=== PATIENT | male | born 1985 | race Caucasian/White ===

== ENCOUNTER 2019-01-25 12:35 | Outpatient (CLI) | payer OTHER ==
--- NOTE | 2019-01-25 14:54 | XRAY Report ---
Reason: R SIDE PAIN Procedure Date: 01/25/2019 Accession Number: [id number] / [id number] Procedure: XR - Lumbar Spine 2 View CPT Code: FULL RESULT: EXAM: LUMBOSACRAL SPINE RADIOGRAPHY EXAM DATE: 01/25/2019 12:51 PM. CLINICAL HISTORY: Right side pain. COMPARISONS: None. TECHNIQUE: 2 views. FINDINGS: Alignment: Normal. No spondylolisthesis or scoliosis. Bones: Six [id number] lumbar vertebral bodies are present vestigial ribs at T12. No fractures or bone lesions. Disks: Disk space heights are preserved with minimal marginal osteophytosis at L3. Facets: Mild to moderate facet arthropathy is present predominantly at L5. Sacroiliac Joints: Unremarkable. Soft Tissues: Normal. The visualized bowel gas pattern is normal. IMPRESSION: Mild degenerative changes as described. RADIA
== END 2019-01-25 12:36 | disposition home or self-care (01) ==
LOC: DI 12:35
PROVIDERS: ATTEND Specialist
DX: M47.27 Other spondylosis with radiculopathy, lumbosacral region (principal); M54.41 Lumbago with sciatica, right side
CPT/HCPCS: 72100

== ENCOUNTER 2022-10-29 16:56 | Outpatient (CLI) | payer OTHER ==
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
== END 2022-10-29 16:57 | disposition home or self-care (01) ==
LOC: DI 16:56
PROVIDERS: ATTEND Registered Nurse
DX: R20.2 Paresthesia of skin (principal); M62.830 Muscle spasm of back; M50.122 Cervical disc disorder at C5-C6 level with radiculopathy

== ENCOUNTER 2022-12-06 06:58 | Outpatient (CLI) | payer OTHER ==
--- NOTE | 2022-12-06 15:56 | MRI Report ---
PROCEDURE: CERVICAL SPINE WO INDICATIONS: PARAESTHESIA TECHNIQUE: Noncontrast sagittal T1 spin echo and T2 fast spin echo, sagittal STIR, foraminal oblique sagittal T2 fast spin echo, and axial gradient echo or T2 fast spin echo through the cervical spine. COMPARISON: Cervical spine x-ray 10/29/2022 FINDINGS: Image quality: Linear high signal is noted traversing the left foramina at C2-3 as well as punctate s imilar hyperintensities noted along the lateral recess at this level. No visualized foreign bodies id entified on x-ray. Alignment and Curvature: There is straightening of normal cervical curvature. Bone Marrow: Marrow demonstrates normal overall signal. Spinal Cord: Visualized spinal cord has normal size and signal. No cerebellar tonsillar herniation. Paraspinous Soft Tissues: No paravertebral masses. Prevertebral soft tissues are normal in thicknes s. Discs: Minimal desiccation is present C5-6. C2-C3: No disc bulge, spinal stenosis or foraminal narrowing. C3-C4: No disc bulge, spinal stenosis or foraminal narrowing. C4-C5: Minimal disc bulge without spinal stenosis. Minimal bilateral foraminal narrowing. C5-C6: Mild posterior left asymmetric disc bulge with effacement of the anterior thecal sac. Minimal to mild bilateral foraminal narrowing. C6-C7: No disc bulge, spinal stenosis or foraminal narrowing. C7-T1: No disc bulge, spinal stenosis or foraminal narrowing. IMPRESSION: Posterior mild left asymmetric disc bulge at C5-6. Scattered minimal to mild foraminal narrowing most notable at C5-6. Linear high signal traversing the left foramina with some adjacent punctate hyperintensities. This is suspected to be related to artifact or potentially surgical hardware which is not visualized on x-ra y. Clinical correlation is recommended. Reviewed by: Bryanna Naqvi MD on 12/06/2022 3:54 PM PDT Approved by: Bryanna Naqvi MD on 12/06/2022 3:54 PM PDT Station ID: [id number]
== END 2022-12-06 06:59 | disposition home or self-care (01) ==
LOC: DI 06:58
PROVIDERS: ATTEND Registered Nurse
DX: M50.321 Other cervical disc degeneration at C4-C5 level (principal); M48.02 Spinal stenosis, cervical region

== ENCOUNTER 2023-03-31 08:52 | Outpatient (CLI) | payer OTHER | END 2023-03-31 08:53 | disposition home or self-care (01) | LOC: SC 08:52 | PROVIDERS: ATTEND Nurse Practitioner Family | DX: G47.33 Obstructive sleep apnea (adult) (pediatric) (principal); R09.02 Hypoxemia; E66.01 Morbid (severe) obesity due to excess calories; Z68.41 Body mass index [BMI] 40.0-44.9, adult | CPT/HCPCS: 95806 ==

== ENCOUNTER 2023-04-24 11:34 | Outpatient (CLI) | payer OTHER ==
--- NOTE | 2023-04-24 12:21 | Sleep Patient Instructions ---
Sleep Center Visit Summary - Patient Visit Information Reason for Visit: Sleep study follow-up - Patient Instructions Instructions Attached: CPAP Dc, CPAP Additional Instructions: You are being started on CPAP therapy with pressure setting at 4-15 cmH2O. You will need to call the sleep care office to set up your follow up once you have your APAP machine and we will schedule a visit to check compliance and response to therapy at that time. You may call the office with any concerns about pressure feeling too low or too much for adjustment, if needed. You should contact DME supplier for any questions or concerns about mask or equipment. Please call office to schedule a follow up appointment in the sleep care office one month after obtaining new device. - Clinic Information Contact: [facility] [address] [place] [address] [email or web address] T: [phone]
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
[2023-04-24 12:31] VITALS: BP 138/90; O2SAT 97
== END 2023-04-24 11:35 | disposition home or self-care (01) ==
LOC: SC 11:34
PROVIDERS: ATTEND Nurse Practitioner Family
DX: G47.33 Obstructive sleep apnea (adult) (pediatric) (principal); R09.02 Hypoxemia; E66.01 Morbid (severe) obesity due to excess calories; Z68.41 Body mass index [BMI] 40.0-44.9, adult
CPT/HCPCS: 99212; 99213